=== PATIENT | female | born 1990 | race Caucasian/White ===

== ENCOUNTER 2016-06-14 17:20 | Emergency (ER) | payer OTHER, MEDICAID ==
[2016-06-14 17:26] VITALS: BP 114/73; PULSE 71; RESP 16; TEMP 98.8; O2SAT 96
--- NOTE | 2016-06-14 18:01 | UCPHY ---
H & P Patient Type: New Chief Complaint Nursing Narrative: vaginal itching and odor x 1 week Time Seen by Provider: 06/14/16 17:46 HPI/ROS: CHIEF COMPLAINT: Vaginal discharge HISTORY OF PRESENT ILLNESS: Patient is a 26-year-old female who comes to the Urgent Care complaining of vaginal discharge and a foul smelling odor. She has been monogamous with her boyfriend and does not suspect STD. She denies . No urinary symptoms. No flank pain. No abdominal pain. He states that this has been present for about a week. She states that her discharge is whitish in normal appearing but that is simply more than usual. No bleeding. REVIEW OF SYSTEMS: Constitutional: denies: chills, fever, recent illness, recent injury EENTM: denies: blurred vision, double vision, nose congestion Respiratory: denies: cough, shortness of breath Cardiac: denies: chest pain, irregular heart rate, lightheadedness, palpitations Gastrointestinal/Abdominal: denies: abdominal pain, diarrhea, nausea, vomiting, blood streaked stools Genitourinary: See HPI Musculoskeletal: denies: joint pain, muscle pain Skin: denies: lesions, rash, jaundice, bruising Neurological: denies: headache, numbness, paresthesia, tingling, dizziness, weakness Hematologic/Lymphatic: denies: blood clots, easy bleeding, easy bruising Immunologic/allergic: denies: HIV/AIDS, transplant EXAM: GENERAL: Well-appearing, well-nourished and in no acute distress. HEAD: Atraumatic, normocephalic. EYES: Pupils equal round and reactive to light, extraocular movements intact, sclera anicteric, conjunctiva are normal. ENT: TMs normal, nares patent, oropharynx clear without exudates. Moist mucous membranes. NECK: Normal range of motion, supple without lymphadenopathy or JVD. LUNGS: Breath sounds clear to auscultation bilaterally and equal. No wheezes rales or rhonchi. HEART: Regular rate and rhythm without murmurs, rubs or gallops. ABDOMEN: Soft, nontender, normoactive bowel sounds. No guarding, no rebound. No masses appreciated. : Normal external vaginal examination, no cervical motion tenderness, no masses, mild whitish discharge, minimal white chunky discharge. BACK: No CVA tenderness, no spinal tenderness, step-offs or deformities EXTREMITIES: Normal range of motion, no pitting or edema. No clubbing or cyanosis. NEUROLOGICAL: Cranial nerves II through XII grossly intact. Normal speech, normal gait. 5/5 strength, normal movement in all extremities, normal sensation PSYCH: Normal mood, normal affect. SKIN: Warm, dry, normal turgor, no visible rashes or lesions. Source: Patient Exam Limitations: No limitations - Personal History LMP (Females 10-55): 22-28 Days Ago - Medical/Surgical History Hx Asthma: No Hx Chronic Respiratory Disease: No Hx Diabetes: No Hx Cardiac Disease: No Hx Renal Disease: No Hx Cirrhosis: No Hx Alcoholism: No Hx HIV/AIDS: No Hx Splenectomy or Spleen Trauma: No Other PMH: denies - Family History Significant Family History: No pertinent family hx - Social History Smoking Status: Current every day smoker Alcohol Use: Sober Drug Use: None Constitutional: Initial Vital Signs Temperature (C) 37.1 C 06/14/16 17:24 Heart Rate 71 06/14/16 17:24 Respiratory Rate 16 06/14/16 17:24 Blood Pressure 114/73 06/14/16 17:24 O2 Sat (%) 96 06/14/16 17:24 O2 Delivery Mode Room Air Allergies/Adverse Reactions: No Known Allergies Allergy (Unverified 07/11/14 13:44) Home Medications: Medication Instructions Recorded metroNIDAZOLE [Flagyl] 500 mg PO BID #14 tab 06/14/16 Medical Decision Making ED Course/Re-evaluation: The patient swabs are positive for clue cells. I will start her on Flagyl. She does not typically get yeast infections. We discussed continued treatment and indications for returning well as follow-up. She declines further workup or testing at this time. Differential Diagnosis: Partial list of the Differential diagnosis considered include but were not limited to; bacterial vaginosis, yeast infection and although unlikely based on the history and physical exam, I also considered PID, , foreign body , urinary tract infection. I discussed these differential diagnoses and the plan with the patient as well as the usual and expected course. The patient understands that the diagnosis is provisional and that in medicine we are not always correct and that further workup is often warranted. Usual and customary warnings were given. All of the patient's questions were answered. The patient was instructed to return to the emergency department should the symptoms at all worsen or return, otherwise to followup with the physician as we discussed. - Data Points Laboratory Results: 06/14/16 06/14/16 17:57 17:57 Trichomonas (Wet Prep) NO YEAST Radha species DNA Pending C.trachomatis RNA (TMA) Pending Gardnerella DNA Probe Pending N.gonorrhoeae RNA (TMA) Pending Trichomonas DNA Probe Pending Departure - Departure Disposition: Home, Routine, Self-Care Clinical Impression: Bacterial vaginosis Condition: Fair Instructions: Bacterial Vaginosis (ED) Referrals: NONE *PRIMARY CARE P,. [Primary Care Provider] - As per Instructions Prescriptions: metroNIDAZOLE [Flagyl] 500 mg PO BID #14 tab - PQRS PQRS Measurement: Not applicable
[2016-06-16 11:49] LABS: CHLAMYDIA AMPLIFICATION GENPRB NEGATIVE (NEGATIVE)
== END 2016-06-14 18:30 | disposition home or self-care (01) ==
LOC: CED 17:20
DX: N76.0 Acute vaginitis (principal); Z72.0 Tobacco use
CPT/HCPCS: 87210-PO; G0463-PO